=== PATIENT | female | born 1960 | race Caucasian/White ===

== ENCOUNTER → 2016-10-13 | Outpatient (CLI) | payer BC | LOC: RAD 11:33 | DX: Z12.31 Encounter for screening mammogram for malignant neoplasm of breast (principal) ==

== ENCOUNTER → 2016-10-26 | Outpatient (CLI) | payer OTHER | LOC: CAT 10-25 12:42 | DX: Z13.6 Encounter for screening for cardiovascular disorders (principal) ==